=== PATIENT | female | born 1995 | race Caucasian/White ===

== ENCOUNTER → 2017-06-21 | Outpatient (CLI) | payer BC | END | disposition home or self-care (01) | LOC: GMAB 12:26 | PROVIDERS: ATTEND Family Medicine | DX: M35.9 Systemic involvement of connective tissue, unspecified (principal) ==

== ENCOUNTER → 2017-08-26 | Outpatient (CLI) | payer OTHER ==
--- NOTE | 2017-08-26 11:01 | US ---
EXAM DESCRIPTION: Gall Bladder CLINICAL HISTORY: EPIGASTRIC PAIN COMPARISON: None available. FINDINGS: Aorta: Nonaneurysmal. IVC: Visualized portions normal. Ascites: None. Pancreas: Partially obscured by overlying bowel gas but visualized portions normal. Liver: The liver is not enlarged. There is a 2.4 cm ovoid hyperechoic lesion in the right hepatic lobe, nonspecific. No definite internal blood flow. No additional liver mass. No intrahepatic biliary duct dilation. Physiologic flow is noted in the main portal vein. Gallbladder/Common Duct: No stones, wall thickening, pericholecystic fluid or common duct dilation. Right Kidney: No stones, significant hydronephrosis, atrophy or mass. IMPRESSION: 2.4 cm ovoid hyperechoic lesion in the right hepatic lobe, nonspecific. This probably represents a hemangioma or other benign liver lesion and may correlate with a slightly smaller hypodense lesion near the same location seen on a previous CT performed in Oct, 2015. Hepatic protocol CT should be considered for further evaluation and confirmation of benign etiology. No cholelithiasis or additional abnormality to explain patient symptoms. Electronically signed by: Keaton Knapp MD 08/26/2017 10:59 AM CDT
== END ==
LOC: US 10:15
PROVIDERS: ATTEND Family Medicine
DX: R10.13 Epigastric pain (principal)

== ENCOUNTER → 2017-11-14 | Outpatient (CLI) | payer OTHER ==
--- NOTE | 2017-11-14 13:10 | US ---
EXAM DESCRIPTION: Venous,Lower Extremity RT: ULTRASOUND. CLINICAL HISTORY: PN IN RIGHT LEG COMPARISON: None Available. TECHNIQUE: Two -dimensional and doppler sonographic evaluation of the deep venous system of the right lower extremity. FINDINGS: Doppler evaluation shows normal color flow and normal phasicity and augmentation of the right common femoral vein, femoral vein, popliteal vein, greater saphenous vein, peroneal, and posterior tibial vein. The right lower extremity deep veins showed normal occlusion with transducer pressure. Two-dimensional survey showed no echogenic thrombus within these veins. IMPRESSION: 1. Duplex ultrasound evaluation of the right lower extremity deep venous system showing no evidence of thrombosis or embolism. Electronically signed by: Galo Moore MD 11/14/2017 1:09 PM CDT
== END ==
LOC: US 12:22
PROVIDERS: ATTEND Family Medicine
DX: M79.604 Pain in right leg (principal); N30.00 Acute cystitis without hematuria

== ENCOUNTER 2017-11-15 11:07 | Emergency (ER) | payer OTHER ==
[2017-11-15 11:31] VITALS: TEMP 99.2
[2017-11-15] MEDS ORDERED: CYCLOBENZAPRINE HCL 5 MG TAB PO ONE (11:37)
[2017-11-15] MEDS ORDERED: predniSONE 20 MG TAB PO ONE (11:37)
--- NOTE | 2017-11-15 11:49 | ED.PDOC ---
History of Present Illness - General Chief Complaint: General Stated Complaint: right hip pain Time Seen by Provider: 11/15/17 11:27 Source: patient Exam Limitations: no limitations - History of Present Illness Initial Comments: the patient is a 22-year-old female presenting to the emergency room secondary to right low back pain present for about 2 days. She went to her primary care doctor yesterday who did x-rays of the area and found no acute pathology. Additionally she had a right lower extremity Doppler performed which showed no evidence of any DVT. The patient is having pain at the right side of L5 by the junction of L5 and S1 in the sacroiliac joint. She is having intermittent symptoms of sciatica. She has obvious palpable paraspinal muscle spasm. No known history of trauma but she does have apparently some lupus and has been somewhat incomplete noncompliant with her Plaquenil. No fevers. No evidence of any infection. No evidence of any rash over the skin in the area. The area is uncomfortable with palpation as well. No pain over the piriformis muscle. She appears to be neurovascularly intact. Timing/Duration: unsure Severity: moderate Improving Factors: nothing Worsening Factors: nothing Associated Symptoms: denies symptoms Allergies/Adverse Reactions: Allergies NO KNOWN ALLERGY Allergy (Verified 04/29/16 00:35) Home Medications: Ambulatory Orders Aspirin [Aspirin Adult Low Dose] 81 mg PO DAILY 10/10/15 Pantoprazole Tablet [Protonix] 40 mg PO DAILY 10/10/15 Plaquenil 200 mg PO DAILY 10/10/15 busPIRone HCL [Buspar] 5 mg PO BID 10/10/15 Cefuroxime Axetil [Ceftin] 250 mg PO BID #7 tab 10/12/15 HYDROcodone 5MG/APAP 325MG [[place] 5/325] 1 - 2 ea PO .Q4H PRN #40 tab 10/12/15 Cyclobenzaprine HCl [Flexeril] 5 mg PO TID PRN #30 tab 11/15/17 predniSONE [Prednisone] 40 mg PO DAILY #10 tab 11/15/17 Review of Systems - Review of Systems Constitutional: States: no symptoms reported EENTM: States: no symptoms reported Respiratory: States: no symptoms reported Cardiology: States: no symptoms reported Gastrointestinal/Abdominal: States: no symptoms reported Genitourinary: States: no symptoms reported Musculoskeletal: States: see HPI Skin: States: no symptoms reported Neurological: States: no symptoms reported Endocrine: States: no symptoms reported All other Systems: No Change from Baseline Past Medical History (General) - Patient Medical History Hx Seizures: No Hx Cardiac Disorders: No Hx Congestive Heart Failure: No Hx Hypertension: No Hx Diabetes: No Hx MRSA: No Surgical History: appendectomy - Vaccination History Hx Tetanus, Diphtheria Vaccination: No Hx Influenza Vaccination: No Hx Pneumococcal Vaccination: No - Social History Hx Tobacco Use: No Hx Alcohol Use: Yes Hx Substance Use: No Hx Substance Use Treatment: No Hx Depression: No - Female History Patient : No Family Medical History - Family History Mother Family History: No Known Physical Exam - Physical Exam General Appearance: Alert, Comfortable, No apparent distress Eye Exam: bilateral normal Ears, Nose, Throat: hearing grossly normal, normal ENT inspection, normal pharynx Neck: full range of motion, supple Respiratory: no respiratory distress, no accessory muscle use Cardiovascular/Chest: normal peripheral pulses, no edema Peripheral Pulses: radial,right: 2+, radial,left: 2+, dorsalis pedis,right: 2+, dorsalis pedis,left: 2+ Rectal Exam: deferred Back Exam: other - see history of present illness. 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 x-rays at her primary care doctor's office along with a right lower extremity Doppler yesterday were apparently negative for any acute pathology. Based on physical exam this appears to be inflammation at the junction of the L5-S1. This is likely related to her lupus. She does have some adjacent paraspinal muscle spasm. No evidence of any skin change to indicate shingles. If she does start to develop a rash then she does need to be reevaluated for that possibility. No evidence of infection at this time. The patient does need to take her Plaquenil as she has been previously instructed. I'm going to add prednisone 40 mg daily for the next 4 days. She needs to take this in the morning. Additionally she'll be written for Flexeril 5 mg 3 times a day as needed to help reduce any muscle spasm. Topical heat may help reduce discomfort and she does need to do some stretching exercises. If she starts to develop any evidence of any infection then she does need to be reevaluated as soon as possible given the fact that she is on immunosuppressants. follow back up with primary care doctor next week. ER warnings were given. Departure - Departure Clinical Impression: Low back pain Qualifiers: Chronicity: acute Back pain laterality: right Sciatica presence: with sciatica Sciatica laterality: sciatica of right side Qualified Code(s): M54.41 - Lumbago with sciatica, right side Disposition: Discharge to Home or Self Care Condition: Fair Departure Forms: ED Discharge - Pt. Copy, Patient Portal Self Enrollment Instructions: DI for Low Back Pain Diet: regular diet Activity: increase activity as tolerated Referrals: Ang Zacarias MD [Primary Care Provider] - 1-5 Days Prescriptions: Cyclobenzaprine HCl [Flexeril] 5 mg PO TID PRN #30 tab PRN Reason: Muscle Spasms predniSONE [Prednisone] 40 mg PO DAILY #10 tab Home Medications: Ambulatory Orders Aspirin [Aspirin Adult Low Dose] 81 mg PO DAILY 10/10/15 Pantoprazole Tablet [Protonix] 40 mg PO DAILY 10/10/15 Plaquenil 200 mg PO DAILY 10/10/15 busPIRone HCL [Buspar] 5 mg PO BID 10/10/15 Cefuroxime Axetil [Ceftin] 250 mg PO BID #7 tab 10/12/15 HYDROcodone 5MG/APAP 325MG [[place] 5/325] 1 - 2 ea PO .Q4H PRN #40 tab 10/12/15 Cyclobenzaprine HCl [Flexeril] 5 mg PO TID PRN #30 tab 11/15/17 predniSONE [Prednisone] 40 mg PO DAILY #10 tab 11/15/17 Additional Instructions: the patient is a 22-year-old female with a history of lupus presenting to the emergency room secondary to a couple of days of right-sided low back pain with associated intermittent sciatica. x-rays at her primary care doctor's office along with a right lower extremity Doppler yesterday were apparently negative for any acute pathology. Based on physical exam this appears to be inflammation at the junction of the L5-S1. This is likely related to her lupus. She does have some adjacent paraspinal muscle spasm. No evidence of any skin change to indicate shingles. If she does start to develop a rash then she does need to be reevaluated for that possibility. No evidence of infection at this time. The patient does need to take her Plaquenil as she has been previously instructed. I'm going to add prednisone 40 mg daily for the next 4 days. She needs to take this in the morning. Additionally she'll be written for Flexeril 5 mg 3 times a day as needed to help reduce any muscle spasm. Topical heat may help reduce discomfort and she does need to do some stretching exercises. If she starts to develop any evidence of any infection then she does need to be reevaluated as soon as possible given the fact that she is on immunosuppressants. follow back up with primary care doctor next week. ER warnings were given.
[2017-11-15 12:04] VITALS: BP 116/78; O2SAT 99
== END 2017-11-15 12:01 | disposition home or self-care (01) ==
LOC: ER 11:07
DX: M54.41 Lumbago with sciatica, right side (principal); M62.838 Other muscle spasm; Z79.899 Other long term (current) drug therapy; Z79.82 Long term (current) use of aspirin

== ENCOUNTER → 2018-07-16 | Outpatient (CLI) | payer OTHER | LOC: GMAL 11:34 | PROVIDERS: ATTEND Family Medicine | DX: E53.9 Vitamin B deficiency, unspecified (principal); E55.9 Vitamin D deficiency, unspecified ==

== ENCOUNTER 2018-10-01 17:59 | Emergency (ER) | payer OTHER ==
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
[2018-10-01] MEDS ORDERED: KETOROLAC TROMETHAMINE INJ 30 MG/ML VIAL IM ONE (19:51)
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
[2018-10-01 22:09] VITALS: O2SAT 98
[2018-10-01 22:12] VITALS: BP 110/70; TEMP 98.1
== END 2018-10-01 20:30 | disposition home or self-care (01) ==
LOC: ER 17:59
DX: S80.11XA Contusion of right lower leg, initial encounter (principal); S80.12XA Contusion of left lower leg, initial encounter; S80.812A Abrasion, left lower leg, initial encounter; V86.59XA Driver of other special all-terrain or other off-road motor vehicle injured in nontraffic accident, initial encounter; Y92.9 Unspecified place or not applicable; Z79.82 Long term (current) use of aspirin; Z79.899 Other long term (current) drug therapy
CPT/HCPCS: 73562; 73590; J1885

== ENCOUNTER 2018-10-30 19:36 | Emergency (ER) | payer OTHER ==
[2018-10-30] MEDS ORDERED: NITROGLYCERIN 0.4 MG 25 EA TAB SL ONE (19:53)
[2018-10-30] MEDS ORDERED: ASPIRIN TABLET 325 MG TAB ONE (19:54)
[2018-10-30] MEDS: ASPIRIN TABLET 325 MG TAB PO ONE (20:00)
[2018-10-30] MEDS: NITROGLYCERIN 0.4 MG 25 EA TAB SL ONE (20:00)
[2018-10-30 20:11] VITALS: O2SAT 99
--- NOTE | 2018-10-30 20:12 | ED.PDOC ---
History of Present Illness - General Chief Complaint: Chest Pain/[place] Stated Complaint: report chest pain Time Seen by Provider: 10/30/18 20:08 Source: patient Exam Limitations: no limitations - History of Present Illness Initial Comments: patient comes in with 1 day history of severe burning substernal epigastric pain that radiates to her back. Patient states it's worse when she lays flat and she often does have reflux and heartburn. She's noted over the past several months that her belly always feels distended and very painful. Patient has no shortness of breath and has never had a cardiac history in the past. Patient does have a history of rheumatoid arthritis and lupus. She takes possible nail, aspirin, NSAIDs, Protonix, and Xyzal for her seasonal allergies. Patient states that she was given Xanax by her family and that at least let her get some sleep but essentially she woke up the pain was much worse. Patient currently takes oral contraceptives. Her only past surgical history is appendectomy and tympanostomy tubes. Patient has no known drug allergies. Patient states she's had a stomach bug for the past 3-4 days with nausea, vomiting, and now for the past 2 days continuous diarrhea. No sick contacts and no fever or chills. No cholesterol by mouth intake or recent travel. Timing/Duration: 24 hours Severity: severe Improving Factors: other - sitting up Worsening Factors: other - lying down Associated Symptoms: nausea/vomiting Allergies/Adverse Reactions: Allergies NO KNOWN ALLERGY Allergy (Verified 10/01/18 18:43) Home Medications: Ambulatory Orders Aspirin [Aspirin Adult Low Dose] 81 mg PO DAILY 10/10/15 Pantoprazole Tablet [Protonix] 40 mg PO DAILY 10/10/15 busPIRone HCL [Buspar] 5 mg PO BID 10/10/15 Cyanocobalamin [Vitamin B12] 1,000 mcg PO DAILY 10/01/18 Hydroxychloroquine Sulfate [Plaquenil] 200 mg PO DAILY 10/01/18 Levocetirizine Dihydrochloride [Xyzal Allergy 24Hr] 5 mg PO DAILY 10/01/18 Norethindrone Acetate 5 mg PO DAILY 10/01/18 Ondansetron Odt (ER Disp) [Zofran ODT (ER DISP)] 8 mg PO ONCE #4 tab 10/30/18 Sucralfate Suspension [Carafate Suspension] 1 gm PO ACHS 10 Days #1 bottle 10/30/18 Review of Systems - Review of Systems Constitutional: States: malaise, weakness EENTM: States: nose congestion. Denies: ear pain, throat pain, throat swelling Respiratory: States: cough. Denies: short of breath, wheezing Cardiology: States: chest pain. Denies: edema, palpitations, syncope Gastrointestinal/Abdominal: States: abdominal pain, diarrhea, nausea, vomiting Genitourinary: States: no symptoms reported Musculoskeletal: States: no symptoms reported Skin: States: no symptoms reported Neurological: States: no symptoms reported Past Medical History (General) - Patient Medical History Hx Seizures: No Hx Stroke: No Hx of COPD: No Hx Cardiac Disorders: No Hx Congestive Heart Failure: No Hx Hypertension: No Hx Diabetes: No Hx MRSA: No Hx Other PMH: Yes - SLE and RA - Vaccination History Hx Tetanus, Diphtheria Vaccination: Yes Hx Influenza Vaccination: No Hx Pneumococcal Vaccination: No - Social History Hx Tobacco Use: No Hx Alcohol Use: Yes Hx Substance Use: No Hx Substance Use Treatment: No Hx Depression: No - Female History Patient : No Family Medical History - Family History Mother Family History: No Known Hx Family;Other: Cerebal palsy Physical Exam - Physical Exam General Appearance: Alert, Obvious distress Eye Exam: bilateral normal Ears, Nose, Throat: hearing grossly normal, normal ENT inspection, normal pharynx Neck: non-tender, full range of motion, supple, normal inspection Respiratory: chest non-tender, lungs clear, normal breath sounds, no respiratory distress Cardiovascular/Chest: normal peripheral pulses, regular rate, rhythm, no edema, no gallop, no murmur Peripheral Pulses: radial,right: 2+, radial,left: 2+ Gastrointestinal/Abdominal: soft, abnormal bowel sounds - hypoactive bowel sounds , distended, tenderness - TTP to epigastric area and LUQ with no rebound and no guarding Back Exam: no CVA tenderness Extremity: non-tender Neurologic: no motor/sensory deficits, alert, oriented x 3 Progress - Progress Progress: 10/30/18 21:38 patient feeling better after GI cocktail and IVF. No emesis now and able to lie down and rest. Discussed current diagnosis is gastritis and suspect gastric ulcer. Will need follow up with PCP to get GI consult for EGD. Stop RA meds for now. Return to ER for worsening of pain, intractable emesis. - Results/Orders Results/Orders: 10/30/18 19:59 IV Care:Saline Lock per Protoc QSHIFT Telemetry .ONCE Sodium Chloride 0.9% (Flush) [Saline Flush Syringe] 10 ml IV PRN PRN EKG Stat Pulse Ox Stat Pulse Oximetry Assessment DAILY 10/30/18 20:43 Urine Culture Stat Laboratory Results WBC 5.2 K/mm3 (4.8-10.8) 10/30/18 20:20 RBC 4.79 M/mm3 (4.20-5.40) 10/30/18 20:20 Hgb 14.5 gm/dL (12.0-16.0) 10/30/18 20:20 Hct 42.8 % (36.0-47.0) 10/30/18 20:20 MCV 89.4 fl (81.0-99.0) 10/30/18 20:20 MCH 30.3 pg (27.0-31.0) 10/30/18 20:20 MCHC 33.9 g/dL (33.0-37.0) 10/30/18 20:20 RDW 12.5 % (11.5-14.5) 10/30/18 20:20 Plt Count 249 K/mm3 (130-400) 10/30/18 20:20 MPV 8.6 fl (7.40-10.4) 10/30/18 20:20 Absolute Neuts (auto) 3.50 K/uL (1.8-6.8) 10/30/18 20:20 Absolute Lymphs (auto) 1.20 K/uL (1.0-3.4) 10/30/18 20:20 Absolute Monos (auto) 0.40 K/uL (0.2-0.8) 10/30/18 20:20 Absolute Eos (auto) 0.00 K/uL (0.0-0.4) 10/30/18 20:20 Absolute Basos (auto) 0.00 K/uL (0.0-0.1) 10/30/18 20:20 Neutrophils % 67.0 % (42.0-78.0) 10/30/18 20:20 Lymphocytes % 23.6 % (20.0-50.0) 10/30/18 20:20 Monocytes % 8.1 % (2.0-9.0) 10/30/18 20:20 Eosinophils % 0.8 % (1.0-5.0) L 10/30/18 20:20 Basophils % 0.5 % (0.0-2.0) 10/30/18 20:20 D-Dimer, Quantitative 0.19 mg/L FEU (0-0.49) 10/30/18 20:20 Sodium 139 mmol/L (135-145) 10/30/18 20:20 Potassium 4.1 mmol/L (3.6-5.0) 10/30/18 20:20 Chloride 106 mmol/L (101-111) 10/30/18 20:20 Carbon Dioxide 25 mmol/L (21-31) 10/30/18 20:20 Anion Gap 12.1 (12-18) 10/30/18 20:20 BUN 12 mg/dL (7-18) 10/30/18 20:20 Creatinine 0.83 mg/dL (0.6-1.3) 10/30/18 20:20 BUN/Creatinine Ratio 14.5 (10-20) 10/30/18 20:20 Random Glucose 96 mg/dL (70-105) 10/30/18 20:20 Serum Osmolality 277.2 mOsm/L (275-295) 10/30/18 20:20 Calcium 8.5 mg/dL (8.4-10.2) 10/30/18 20:20 Total Bilirubin 0.8 mg/dL (0.2-1.0) 10/30/18 20:20 AST 39 IU/L (10-42) 10/30/18 20:20 ALT 31 IU/L (10-60) 10/30/18 20:20 Alkaline Phosphatase 61 IU/L (42-121) 10/30/18 20:20 Creatine Kinase 59 IU/L (26-140) 10/30/18 20:20 CK-MB (CK-2) 0.5 ng/mL (0.0-4.4) 10/30/18 20:20 CK-MB (CK-2) % Not Reportable 10/30/18 20:20 Troponin I < 0.02 ng/mL (0.01-0.05) 10/30/18 20:20 Serum Total Protein 7.7 gm/dL (6.4-8.2) 10/30/18 20:20 Albumin 4.5 g/dl (3.2-5.5) 10/30/18 20:20 Globulin 3.2 gm/dL (2.3-3.5) 10/30/18 20:20 Albumin/Globulin Ratio 1.4 (1.1-1.9) 10/30/18 20:20 Amylase 58 U/L (28-100) 10/30/18 20:20 Lipase 30 U/L (22-51) 10/30/18 20:20 Serum HCG, Qual Negative (NEGATIVE) 10/30/18 20:20 Urine Color Yellow (Yellow) 10/30/18 20:43 Urine Appearance Cloudy (Clear) 10/30/18 20:43 Urine pH 6.0 (4.5-7.8) 10/30/18 20:43 Ur Specific [place] >= 1.030 (1.005-1.030) 10/30/18 20:43 Urine Protein 30 mg/dL 10/30/18 20:43 Urine Glucose (UA) Negative mg/dL (Negative) 10/30/18 20:43 Urine Ketones Negative mg/dL (NEGATIVE) 10/30/18 20:43 Urine Blood Negative (Negative) 10/30/18 20:43 Urine Nitrite Negative 10/30/18 20:43 Urine Bilirubin Negative (NEGATIVE) 10/30/18 20:43 Urine Urobilinogen 0.2 mg/dL (0.2-1.0) 10/30/18 20:43 Ur Leukocyte Esterase Small (Negative) H 10/30/18 20:43 Urine RBC 0 /hpf 10/30/18 20:43 Urine WBC 20-30 /hpf H 10/30/18 20:43 Ur Epithelial Cells 3-5 /hpf 10/30/18 20:43 Urine Bacteria 1+ 10/30/18 20:43 Urine Mucus Large 10/30/18 20:43 Urine Yeast Rare 10/30/18 20:43 Patient Name: DANIEL ROMAN Gender: Female Date of : 1995 Referring Physician: SAMANTHA SEPULVEDA Organization: [facility] Accession Number: [id number] Requested Date: October 30, 2018 20:08 Report Status: Final Requested Procedure: 1 Procedure Description: Abdoment/Pelvis w/o Contrast Modality: CT Findings Reporting MD: Barrera Loaiza MD: Not available Dictation Time: Bottle Filler: Not available 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 COMPARISON: 10/10/2015 TECHNIQUE: The CT scan was done using contiguous axial 2.5 mm noncontrast sections through the abdomen and pelvis. This exam was performed according to our departmental dose-optimization program, which includes automated exposure control, adjustment of the mA and/or kV according to patient size and/or use of iterative reconstruction technique. FINDINGS: The visualized portions of the lung bases are clear. The liver, gallbladder, adrenal glands, spleen, and pancreas have an unremarkable noncontrast CT appearance. A few tiny barely perceptible, less than 1 mm stones are noted in both kidneys. The kidneys are otherwise unremarkable. The aorta is normal in caliber. No dilated loops of small bowel are identified. The appendix is surgically absent. There is no free air, free fluid, or abscess. IMPRESSION: No evidence of an acute intra-abdominal process. Tiny nonobstructing stones in both kidneys. 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 The heart size is normal. The pulmonary vascularity is unremarkable. The lungs are clear. There is no consolidation, infiltrate, pleural effusion, or pneumothorax. IMPRESSION: Normal chest radiograph - EKG/XRAY/CT EKG: Sinus, no ST T wave changes Departure - Departure Clinical Impression: Gastritis Qualifiers: Gastritis type: other gastritis Chronicity: acute Gastritis bleeding: without bleeding Qualified Code(s): K29.00 - Acute gastritis without bleeding Disposition: Discharge to Home or Self Care Condition: Fair Departure Forms: ED Discharge - Pt. Copy, Patient Portal Self Enrollment Instructions: DI for Chest Pain Referrals: Avelino Zheng III, MD [Primary Care Provider] - 1-2 Weeks Prescriptions: Ondansetron Odt (ER Disp) [Zofran ODT (ER DISP)] 8 mg PO ONCE #4 tab Sucralfate Suspension [Carafate Suspension] 1 gm PO ACHS 10 Days #1 bottle Home Medications: Ambulatory Orders Aspirin [Aspirin Adult Low Dose] 81 mg PO DAILY 10/10/15 Pantoprazole Tablet [Protonix] 40 mg PO DAILY 10/10/15 busPIRone HCL [Buspar] 5 mg PO BID 10/10/15 Cyanocobalamin [Vitamin B12] 1,000 mcg PO DAILY 10/01/18 Hydroxychloroquine Sulfate [Plaquenil] 200 mg PO DAILY 10/01/18 Levocetirizine Dihydrochloride [Xyzal Allergy 24Hr] 5 mg PO DAILY 10/01/18 Norethindrone Acetate 5 mg PO DAILY 10/01/18 Ondansetron Odt (ER Disp) [Zofran ODT (ER DISP)] 8 mg PO ONCE #4 tab 10/30/18 Sucralfate Suspension [Carafate Suspension] 1 gm PO ACHS 10 Days #1 bottle 10/30/18 Additional Instructions: suspect gastric ulcer. Will need follow up with PCP to get GI consult for EGD. Stop RA meds for now. Return to ER for worsening of pain, intractable emesis.
[2018-10-30] MEDS ORDERED: LIDOCAINE HCL 2% (MOUTH-THROAT) 15 ML UD ONE ×2 (20:29→21:43)
[2018-10-30] MEDS ORDERED: ALUM & MAG HYDROX-SIMETHICONE 30 ML UD ONE ×2 (20:29→21:43)
[2018-10-30] MEDS: ALUM & MAG HYDROX-SIMETHICONE 30 ML, LIDOCAINE VISCOUS 2% 15 ML PO ONE ×4 (20:33→21:45)
[2018-10-30] MEDS: SODIUM CHLORIDE 0.9% 1000ML 1,000 ML IVS ONE (20:34)
[2018-10-30] MEDS: ONDANSETRON INJ 4 MG/2 ML VIAL IV ONE (20:37)
[2018-10-30] MEDS: SODIUM CHLORIDE 0.9% (FLUSH) 10 ML SYG IV PRN (20:38)
--- NOTE | 2018-10-30 21:11 | RAD ---
EXAM: Chest,1 View CLINICAL INDICATION: Chest pain COMPARISON: 07/22/2008 FINDINGS: A single view of the chest was obtained. The heart size is normal. The pulmonary vascularity is unremarkable. The lungs are clear. There is no consolidation, infiltrate, pleural effusion, or pneumothorax. IMPRESSION: Normal chest radiograph. Electronically signed by: Barrera Loaiza MD 10/30/2018 9:09 PM CDT
--- NOTE | 2018-10-30 21:14 | CT ---
EXAM: Abdoment/Pelvis w/o Contrast CLINICAL INDICATION: Abdominal pain. COMPARISON: 10/10/2015 TECHNIQUE: The CT scan was done using contiguous axial 2.5 mm noncontrast sections through the abdomen and pelvis. This exam was performed according to our departmental dose-optimization program, which includes automated exposure control, adjustment of the mA and/or kV according to patient size and/or use of iterative reconstruction technique. FINDINGS: The visualized portions of the lung bases are clear. The liver, gallbladder, adrenal glands, spleen, and pancreas have an unremarkable noncontrast CT appearance. A few tiny barely perceptible, less than 1 mm stones are noted in both kidneys. The kidneys are otherwise unremarkable. The aorta is normal in caliber. No dilated loops of small bowel are identified. The appendix is surgically absent. There is no free air, free fluid, or abscess. IMPRESSION: No evidence of an acute intra-abdominal process. Tiny nonobstructing stones in both kidneys. Electronically signed by: Barrera Loaiza MD 10/30/2018 9:12 PM CDT
[2018-10-30] MEDS: ONDANSETRON ODT (ER DISP) 8 MG TAB PO ONE (21:58)
[2018-10-30 22:09] VITALS: BP 113/64; TEMP 97.9
== END 2018-10-30 22:09 | disposition home or self-care (01) ==
LOC: ER 19:36
DX: K29.00 Acute gastritis without bleeding (principal); R07.9 Chest pain, unspecified; M32.19 Other organ or system involvement in systemic lupus erythematosus; M06.9 Rheumatoid arthritis, unspecified; Z79.82 Long term (current) use of aspirin; Z79.899 Other long term (current) drug therapy; Z90.49 Acquired absence of other specified parts of digestive tract
CPT/HCPCS: 36415; 71045; 74176; 80053; 81001; 82150; 82550; 82553; 83690; 84484; 84703; 85025; 85379; 87086; 93005; J2405; J7030

== ENCOUNTER → 2019-03-26 | Outpatient (CLI) | payer BC, OTHER ==
--- NOTE | 2019-03-26 14:35 | MRI ---
Study: MRI of the Left Knee. Indication: PAIN IN LEFT KNEE Technique: Multiplanar, multi sequence MRI of the left knee was obtained without intravenous contrast. Comparison: None. Findings: ACL, PCL, and MCL intact. IT band thickened distally with increased internal PD signal which can be seen with IT band friction. Remaining lateral collateral ligament complex structures intact. Medial meniscus and lateral meniscus intact. No high-grade chondral defect throughout the knee. Tendinosis quadriceps tendon insertion. Patellar tendon intact. Mild prepatellar tendon bursitis. Patella normally located. No high-grade chondral defect patellofemoral compartment. Tiny effusion. No acute fracture. Impression: Intact menisci. Subtle findings which can be seen with IT band friction. Low-grade tendinosis quadriceps tendon insertion. Mild prepatellar tendon bursitis. Electronically signed by: Owen Talavera MD 03/26/2019 2:33 PM CDT
== END ==
LOC: MRI 09:10
PROVIDERS: ATTEND Family Medicine
DX: M76.892 Other specified enthesopathies of left lower limb, excluding foot (principal); M70.42 Prepatellar bursitis, left knee

== ENCOUNTER → 2019-06-15 | Outpatient (CLI) | payer BC | LOC: GMAL 18:10 | PROVIDERS: ATTEND Family Medicine | DX: M32.9 Systemic lupus erythematosus, unspecified (principal) ==

== ENCOUNTER → 2019-11-03 | Outpatient (CLI) | payer BC | LOC: LAB.O 12:22 | PROVIDERS: ATTEND Family Medicine | DX: R03.0 Elevated blood-pressure reading, without diagnosis of hypertension (principal); N39.0 Urinary tract infection, site not specified ==

== ENCOUNTER → 2019-11-16 | Outpatient (CLI) | payer BC ==
--- NOTE | 2019-11-17 08:40 | US ---
EXAM DESCRIPTION: Renal: Ultrasound. CLINICAL HISTORY: 24 years Female ELEVATED BLOOD PRESSURE READING COMPARISON: None TECHNIQUE: Transcutaneous scanning: Two-dimensional and Doppler modes. FINDINGS: Right kidney measures 10.6 x 4.7 x 5.3 cm; renal volume 138.9 mL. Mid-renal cortical thickness 10 mm. . Increased cortical echogenicity equal to the liver No hydronephrosis No echogenic stones. 16 x 15 mm cyst in the inferior pole. Minimally lobulated contour of the kidney with no perinephric fluid. Normal vascularity. Proximal ureter not seen.. Left kidney measures 10.3 x 5.2 x 5.2 cm; renal volume 144.1 mL. Mid 144-renal cortical thickness 11 mm.. Increased cortical echogenicity but less than the spleen. No hydronephrosis. No echogenic stones. Minimally lobulated contour of the kidney with no perinephric fluid. Normal vascularity.. Proximal ureter not seen. Urinary bladder was visualized. Bladder volume 65.4 mL. Ureteral jet in the bladder not seen by color Doppler. Patient unable to void. Abdominal aorta: Normal caliber from the proximal segment to the distal bifurcation. IMPRESSION: 1. Bilateral kidneys with cortical thinning and increased cortical echogenicity. Right kidney more echogenic than the liver which could indicate more progressive disease compared to the left. Volumes are similar. No echogenic stones or hydronephrosis bilaterally. Ureters are not seen. 2. Small bladder volume and patient did not void. Normal caliber of the abdominal aorta. Electronically signed by: Galo Moore MD 11/17/2019 8:39 AM CDT
== END ==
LOC: US 11:00
PROVIDERS: ATTEND Family Medicine
DX: R03.0 Elevated blood-pressure reading, without diagnosis of hypertension (principal); N28.9 Disorder of kidney and ureter, unspecified

== ENCOUNTER → 2019-12-14 | Outpatient (CLI) | payer BC ==
--- NOTE | 2019-12-14 12:29 | US ---
EXAM DESCRIPTION: Renal Arteries: Ultrasound. CLINICAL HISTORY: ELEVATED BLOOD PRESSURE COMPARISON: Two-dimensional ultrasound evaluation of the bilateral kidneys on November 15. TECHNIQUE: Transcutaneous scanning: Grayscale mode. Doppler peak systolic and end-diastolic velocities/measurements of the abdominal aorta, renal arteries, intra renal arteries, and renal veins. FINDINGS: PSV (cm/sec): Aorta: 121 Right renal artery: 97 Left renal artery: 88 EDV (cm/sec): Right renal artery: 37.1 Left renal artery: 31.6 Renal veins: Visualized. IVC: Visualized. Intrarenal RI's: Proximal segmental Right: 0.52 Left: 0.65. Mid segmental Right: 0.58 Left: 0.51. Distal segmental Right: 0.59 Left: 0.58. Renal Aortic Ratio: Right RAR = RRA PSV/Aortic PSV = 97 /121= 0.8. Left RAR = LRA PSV/Aortic PSV = 88/121 = 0.7. End Diastolic Ratio: Right EDR = RRA EDV/RRA PSV = 37/97 = 0.38. Left EDR = LRA EDV/LRA PSV = 31.6/88= 0.36. Other: None.. IMPRESSION: 1. Bilateral renal aortic ratios are within normal range with no evidence of significant renal artery stenosis ( greater than 50%). 2. Bilateral end diastolic ratios of the renal arteries and resistive measurements of the segmental arteries showing no evidence of significant renovascular parenchymal disease. Electronically signed by: Galo Moore MD 12/14/2019 12:27 PM CDT
== END ==
LOC: US 12-11 10:04
PROVIDERS: ATTEND Family Medicine
DX: R10.84 Generalized abdominal pain (principal); R03.0 Elevated blood-pressure reading, without diagnosis of hypertension

== ENCOUNTER → 2020-01-04 | Outpatient (CLI) | payer BC | LOC: GMAL 16:26 | PROVIDERS: ATTEND Family Medicine | DX: I10 Essential (primary) hypertension (principal) ==

== ENCOUNTER → 2020-01-07 | Outpatient (CLI) | payer BC | LOC: GMAE 10:37 | PROVIDERS: ATTEND Family Medicine | DX: R39.15 Urgency of urination (principal) ==

== ENCOUNTER 2020-04-09 02:10 | Emergency (ER) | payer BC, OTHER ==
[2020-04-09] MEDS ORDERED: SODIUM CHLORIDE 0.9% 1000ML 1,000 ML IVS ONE (02:41)
[2020-04-09] MEDS ORDERED: KETOROLAC TROMETHAMINE INJ 30 MG/ML VIAL IV ONE (02:41)
[2020-04-09] MEDS ORDERED: ALUM & MAG HYDROX-SIMETHICONE 30 ML UD ONE (02:56)
[2020-04-09] MEDS ORDERED: LIDOCAINE HCL 2% (MOUTH-THROAT) 15 ML UD ONE (02:56)
[2020-04-09] MEDS ORDERED: ONDANSETRON INJ 4 MG/2 ML VIAL ONE (02:58)
[2020-04-09] MEDS ORDERED: ONDANSETRON INJ 4 MG/2 ML VIAL IV ONE (02:58)
[2020-04-09] MEDS ORDERED: MORPHINE SULFATE INJ 10 MG/ML VIAL IV ONE (03:13)
[2020-04-09] MEDS ORDERED: MORPHINE SULFATE INJ 10 MG/ML VIAL ONE (03:14)
--- NOTE | 2020-04-09 03:53 | CT ---
EXAM DESCRIPTION: Abdomen/Pelvis w/Contrast CLINICAL HISTORY: 25 years Female, lupus, fever, diarrhea, dysuria 5 days COMPARISON: Noncontrast CT scan the abdomen and pelvis dated 10/30/2018 TECHNIQUE: 5 mm axial images through the abdomen and pelvis were performed after the administration of intravenous contrast. Coronal and sagittal reconstructions were obtained. This exam was performed according to our departmental dose-optimization program which includes use of Automated Exposure Control, adjustment of the mA and/or kV according to patient size and/or use of iterative reconstruction technique. FINDINGS: The lung bases are clear. No pericardial or pleural effusion. A 4-5 mm area of low attenuation within RIGHT lobe of the liver on axial image 13 is too small for definitive characterization. Addition, there is a 1.6 x 1.7 cm. Hypoattenuation more centrally in the RIGHT lobe adjacent to the caudate lobe that extends over 2 cm in the craniocaudad dimension. Images were obtained during the portal venous phase and there is a question of some early filling of this lesion. Postcontrast images of the spleen, kidneys (tiny calculi seen on the prior noncontrast study are not well visualized on this postcontrast exam), adrenal glands, gallbladder and pancreas are unremarkable. In particular, both kidneys are symmetrically enhancing without adjacent fat stranding or hydronephrosis. No ascites or small bowel obstruction. There has been a previous appendectomy. Stool fills the proximal through midportion of the colon. No bowel wall thickening or pericolonic fat stranding. There is some fecalization of small bowel contents without obstruction. No adnexal mass or bladder calculus. No free fluid pelvis. No bone infarct is detected. IMPRESSION: No finding to explain this patient's diarrhea or dysuria. There is no CT evidence of pyelonephritis or cystitis and no fluid is seen in the colon. In fact, much of the colon is filled with stool and there is some fecalization of contents within the small bowel suggesting delayed bowel motility. 2 x 1.6 x 1.7 cm lesion in the central RIGHT lobe of the liver favored to represent a hemangioma although findings are not diagnostic on this single phase postcontrast study. A 4-5 mm area of hypoattenuation within the RIGHT lobe of the liver is too small for definitive characterization but of doubtful clinical significance. Electronically signed by: Martha Rodrigues MD 04/09/2020 3:51 AM [employer]ILIT[employer] DIRECTOR
[2020-04-09] MEDS ORDERED: MAGNESIUM HYDROXIDE 30 ML UD PO ONE (04:00)
[2020-04-09] MEDS ORDERED: FLUCONAZOLE 100 MG TAB PO ONE (04:00)
[2020-04-09] MEDS ORDERED: cefTRIAXone SODIUM 1 GM in SODIUM CHL 0.9% 50ML MIN-BAG+ 50 ML IVPB ONE (04:00)
--- NOTE | 2020-04-09 04:09 | ED.PDOC ---
History of Present Illness - General Chief Complaint: Problem Stated Complaint: flank pain Time Seen by Provider: 04/09/20 02:31 Source: patient Exam Limitations: no limitations - History of Present Illness Initial Comments: The patient is a 25-year-old female presented emergency room secondary to about 5 days of symptoms of abdominal pain and flank pain, a little more on the right than the left along with 4-5 episodes of diarrhea per day and some dysuria and mild frequency. She is concerned about a kidney stone possibly. No significant vaginal discharge. She does not believe she is . She does take immunosuppressive for lupus. Has had some diaphoresis but no defined fever. No rash. No history of diverticulitis or colitis. 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 No syncope or near syncope. No chest pain. 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 Timing/Duration: other - 5 days Severity: moderate Improving Factors: nothing Worsening Factors: nothing Associated Symptoms: loss of appetite, malaise Allergies/Adverse Reactions: Allergies NO KNOWN ALLERGY Allergy (Verified 10/01/18 18:43) Home Medications: Ambulatory Orders Pantoprazole Tablet [Protonix] 40 mg PO DAILY 10/10/15 Hydroxychloroquine Sulfate [Plaquenil] 400 mg PO DAILY 10/01/18 Levocetirizine Dihydrochloride [Xyzal Allergy 24Hr] 5 mg PO DAILY 10/01/18 Norethindrone Acetate 5 mg PO DAILY 10/01/18 Acetaminophen [Tylenol] 500 mg PO PRN 04/09/20 Amlodipine Besylate 10 mg PO DAILY 04/09/20 Spkraiv-Rgqalnttmplya-Hetmhrsb [Excedrin Extra Strength] 1 tab PO PRN 04/09/20 Chlorpheniramine Maleate 4 mg PO PRN 04/09/20 Hydroxychloroquine Sulfate [Plaquenil] 200 mg PO .QSATQSUN 04/09/20 Ibuprofen [Motrin] 200 mg PO PRN 04/09/20 Phenazopyridine HCl [Hm Urinary Pain Relief] 99.5 mg PO PRN 04/09/20 Sulfamethoxazole-Trimethoprim [Bactrim Ds 800-160 mg] 1 tab PO BID 04/09/20 Review of Systems - Review of Systems Constitutional: States: malaise EENTM: States: no symptoms reported Respiratory: States: no symptoms reported Cardiology: States: no symptoms reported Gastrointestinal/Abdominal: States: see HPI Genitourinary: States: see HPI Musculoskeletal: States: back pain Skin: States: no symptoms reported Neurological: States: no symptoms reported Endocrine: States: no symptoms reported All other Systems: No Change from Baseline Past Medical History (General) - Patient Medical History Hx Seizures: No Hx Stroke: No Hx of COPD: No Hx Cardiac Disorders: No Hx Congestive Heart Failure: No Hx Hypertension: No Hx Diabetes: No Hx MRSA: No - Vaccination History Hx Tetanus, Diphtheria Vaccination: Yes Hx Influenza Vaccination: No Hx Pneumococcal Vaccination: No Immunizations Up to Date: No - Social History Hx Tobacco Use: No Hx Alcohol Use: Yes Hx Substance Use: No Hx Substance Use Treatment: No Hx Depression: No - Female History Patient : No Family Medical History - Family History Mother Family History: No Known Hx Family;Other: Cerebal palsy Physical Exam - Physical Exam General Appearance: Alert, Other - Uncomfortable Eye Exam: bilateral normal Ears, Nose, Throat: hearing grossly normal, normal ENT inspection Neck: full range of motion, supple Respiratory: lungs clear, normal breath sounds, no respiratory distress, no accessory muscle use Cardiovascular/Chest: normal peripheral pulses, regular rate, rhythm, no edema Peripheral Pulses: radial,right: 2+, radial,left: 2+ Gastrointestinal/Abdominal: soft, other - Diffuse discomfort to palpation but a little worse in the right side of the abdomen. 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 The patient does appear to have a urinary tract infection and is receiving a dose of Rocephin here. Due to questionable allergy to ciprofloxacin she will be placed on Macrobid for the next 5 days. Urine will be cultured. She needs to keep her self well-hydrated. She did have a small yeast in the urine and so did receive a dose of Diflucan here today as well. Most of the symptoms the patient is experiencing is most likely however due to constipation is seen on the CT scan. She is being given a dose of milk of magnesia here and will be written for GoLYTELY to take tomorrow. She continues MiraLAX 3-5 times a week or she can take Metamucil or FiberCon daily to help reduce constipation in the future. She does need to continue her Protonix. As an incidental finding on the CT scan she does appear to have a 2 cm lesion to the liver that is most consistent with a hemangioma. I would recommend that she see her primary care doctor in a couple of months to obtain a right upper quadrant ultrasound for serial exam. ER warnings are given. crys price [id number] - Results/Orders Results/Orders: CT scan of abdomen pelvis with IV contrast shows about a 2 cm lesion on the liver that is most consistent with a hemangioma. She also has significant constipation in the proximal colon. No evidence of significant renal pathology. See reports for details. The patient tested negative for coronavirus on the rapid test here today. Laboratory Results - last 24 hr 04/09/20 04/09/20 04/09/20 02:25 02:25 02:25 WBC 6.1 RBC 4.63 Hgb 14.1 Hct 40.3 MCV 87.1 MCH 30.5 MCHC 35.0 RDW 12.3 Plt Count 194 MPV 8.5 Absolute Neuts (auto) 4.90 Absolute Lymphs (auto) 0.60 L Absolute Monos (auto) 0.40 Absolute Eos (auto) 0.10 Absolute Basos (auto) 0.00 Neutrophils % 81.7 H Lymphocytes % 10.2 L Monocytes % 6.5 Eosinophils % 1.2 Basophils % 0.4 Sodium 138 Potassium 3.8 Chloride 104 Carbon Dioxide 23 Anion Gap 14.8 BUN 19 H Creatinine 0.93 BUN/Creatinine Ratio 20.4 H Random Glucose 114 H Serum Osmolality 278.8 Calcium 8.9 Total Bilirubin 0.6 Direct Bilirubin 0.1 Indirect Bilirubin 0.5 AST 20 ALT 14 Alkaline Phosphatase 63 Serum Total Protein 7.3 Albumin 4.7 Globulin 2.6 Albumin/Globulin Ratio 1.8 Amylase 84 Lipase 44 Serum HCG, Qual Urine Color Yellow Urine Appearance Sl cloudy Urine pH 7.0 Ur Specific [place] >= 1.030 Urine Protein Trace Urine Glucose (UA) Negative Urine Ketones Negative Urine Blood Trace-intact H Urine Nitrite Positive H Urine Bilirubin Negative Urine Urobilinogen 0.2 Ur Leukocyte Esterase Small H Urine RBC 3-5 H Urine WBC 10-20 H Ur Epithelial Cells 5-10 Urine Bacteria Rare Urine Yeast 1+ budding H 04/09/20 02:25 WBC RBC Hgb Hct MCV MCH MCHC RDW Plt Count MPV Absolute Neuts (auto) Absolute Lymphs (auto) Absolute Monos (auto) Absolute Eos (auto) Absolute Basos (auto) Neutrophils % Lymphocytes % Monocytes % Eosinophils % Basophils % Sodium Potassium Chloride Carbon Dioxide Anion Gap BUN Creatinine BUN/Creatinine Ratio Random Glucose Serum Osmolality Calcium Total Bilirubin Direct Bilirubin Indirect Bilirubin AST ALT Alkaline Phosphatase Serum Total Protein Albumin Globulin Albumin/Globulin Ratio Amylase Lipase Serum HCG, Qual Negative Urine Color Urine Appearance Urine pH Ur Specific [place] Urine Protein Urine Glucose (UA) Urine Ketones Urine Blood Urine Nitrite Urine Bilirubin Urine Urobilinogen Ur Leukocyte Esterase Urine RBC Urine WBC Ur Epithelial Cells Urine Bacteria Urine Yeast Departure - Departure Clinical Impression: Constipation by delayed colonic transit, Cystitis, Yeast infection of the vagina Disposition: Discharge to Home or Self Care Condition: Fair Departure Forms: ED Discharge - Pt. Copy, Patient Portal Self Enrollment Instructions: Constipation, Adult (DC), Urinary Tract Infection, Adult (DC) Diet: regular diet - High-fiber Activity: increase activity as tolerated Referrals: Avelino Zheng III, MD [Primary Care Provider] - 1-2 Weeks Home Medications: Ambulatory Orders Pantoprazole Tablet [Protonix] 40 mg PO DAILY 10/10/15 Hydroxychloroquine Sulfate [Plaquenil] 400 mg PO DAILY 10/01/18 Levocetirizine Dihydrochloride [Xyzal Allergy 24Hr] 5 mg PO DAILY 10/01/18 Norethindrone Acetate 5 mg PO DAILY 10/01/18 Acetaminophen [Tylenol] 500 mg PO PRN 04/09/20 Amlodipine Besylate 10 mg PO DAILY 04/09/20 Auwziob-Vmkffozqmspqn-Hfnewhgi [Excedrin Extra Strength] 1 tab PO PRN 04/09/20 Chlorpheniramine Maleate 4 mg PO PRN 04/09/20 Hydroxychloroquine Sulfate [Plaquenil] 200 mg PO .QSATQSUN 04/09/20 Ibuprofen [Motrin] 200 mg PO PRN 04/09/20 Phenazopyridine HCl [Hm Urinary Pain Relief] 99.5 mg PO PRN 04/09/20 Sulfamethoxazole-Trimethoprim [Bactrim Ds 800-160 mg] 1 tab PO BID 04/09/20 Additional Instructions: The patient is a 25-year-old female presenting with 5 to 6 days of symptoms. The patient does appear to have a urinary tract infection and is receiving a dose of Rocephin here. Due to questionable allergy to ciprofloxacin she will be placed on Macrobid for the next 5 days. Urine will be cultured. She needs to keep her self well-hydrated. She did have a small yeast in the urine and so did receive a dose of Diflucan here today as well. Most of the symptoms the patient is experiencing is most likely however due to constipation as seen on the CT scan. She is being given a dose of milk of magnesia here and will be written for GoLYTELY to take tomorrow. She can use MiraLAX 3-5 times a week or she can take Metamucil or FiberCon daily to help reduce constipation in the future. She does need to continue her Protonix. As an incidental finding on the CT scan she does appear to have a 2 cm lesion to the liver that is most consistent with a hemangioma. I would recommend that she see her primary care doctor in a couple of months to obtain a right upper quadrant ultrasound for serial exam. ER warnings are given.
[2020-04-09 04:35] VITALS: BP 124/75; TEMP 97.5; O2SAT 100
== END 2020-04-09 04:34 | disposition home or self-care (01) ==
LOC: ER 02:10
DX: N30.90 Cystitis, unspecified without hematuria (principal); B37.3 Candidiasis of vulva and vagina; K59.01 Slow transit constipation; K58.9 Irritable bowel syndrome, unspecified; K76.9 Liver disease, unspecified; Z20.828 Contact with and (suspected) exposure to other viral communicable diseases
CPT/HCPCS: 74177; 80053; 80076; 81001; 82150; 83690; 84703; 85025; 87040; 87086; 87635; J0696; J1885; J2270; J2405; J7030; J7050

== ENCOUNTER 2020-06-06 07:50 | Emergency (ER) | payer OTHER ==
[2020-06-06] MEDS: ONDANSETRON INJ 4 MG/2 ML VIAL IV ONE (08:06)
[2020-06-06] MEDS: SODIUM CHLORIDE 0.9% 1000ML 1,000 ML IVS ONE (08:06)
--- NOTE | 2020-06-06 08:12 | ED.PDOC ---
History of Present Illness - General Chief Complaint: GI Problem Stated Complaint: n/v, dizziness this morning Time Seen by Provider: 06/06/20 07:59 Information Source: patient Exam Limitations: no limitations - History of Present Illness Initial Comments: PATIENT PRESENTS WITH NAUSEA, VOMITING, DIAPHORESIS, DIZZINESS ONSET THIS MORNING. DENIES ACUTE COUGH, RHINORRHEA, SORE THROAT OR OTHER SYMPTOMS. SHE SAYS SHE THINKS SHE HAS FLU. DOES NOT HAVE PERIODS, ON PROGESTERONE MINI PILL. NO PAIN AT CURRENT. Worsening Factors: nothing Review of Systems - Review of Systems Constitutional: States: no symptoms reported EENTM: States: no symptoms reported Respiratory: States: no symptoms reported Cardiology: States: no symptoms reported Genitourinary: States: no symptoms reported Past Medical History (General) - Patient Medical History Hx Seizures: No Hx Stroke: No Hx of COPD: No Hx Cardiac Disorders: No Hx Congestive Heart Failure: No Hx Hypertension: No Hx Diabetes: No Hx MRSA: No Surgical History: appendectomy - Vaccination History Hx Tetanus, Diphtheria Vaccination: Yes Hx Influenza Vaccination: No Hx Pneumococcal Vaccination: No - Social History Hx Tobacco Use: No Hx Alcohol Use: Yes Hx Substance Use: No Hx Substance Use Treatment: No Hx Depression: No - Activities of Daily Living Hospice Agency (if applicable):: None - Female History Patient : No Family Medical History - Family History Mother Family History: No Known Hx Family;Other: Cerebal palsy Physical Exam - Physical Exam General Appearance: Alert, Comfortable, Well Developed, Well Groomed, Well Hydrated, Well Nourished Eyes, Ears, Nose, Throat Exam: PERRL/EOMI, normal ENT inspection, TMs normal, pharynx normal Neck: non-tender, full range of motion, normal inspection Respiratory: chest non-tender, lungs clear, normal breath sounds, no respiratory distress Cardiovascular/Chest: normal peripheral pulses, regular rate, rhythm, no edema, no gallop, no JVD, no murmur, JVD Peripheral Pulses: No deficit Gastrointestinal/Abdominal: normal bowel sounds, non tender, no organomegaly Departure - Departure Clinical Impression: Viral gastroenteritis Time of Disposition: 09:55 Disposition: Discharge to Home or Self Care Condition: Good Departure Forms: ED Discharge - Pt. Copy, Patient Portal Self Enrollment Instructions: Viral Gastroenteritis Prescriptions: Diphenoxylate/Atropine [Lomotil Tab] 2.5 mg PO QID PRN #15 tab PRN Reason: Diarrhea Ondansetron Odt [Zofran ODT] 8 mg PO Q8H PRN #15 tab PRN Reason: nausea,vomiting Home Medications: Ambulatory Orders Pantoprazole Tablet [Protonix] 40 mg PO DAILY 10/10/15 Hydroxychloroquine Sulfate [Plaquenil] 400 mg PO DAILY 10/01/18 Levocetirizine Dihydrochloride [Xyzal Allergy 24Hr] 5 mg PO DAILY 10/01/18 Norethindrone Acetate 5 mg PO DAILY 10/01/18 Acetaminophen [Tylenol] 500 mg PO PRN 04/09/20 Amlodipine Besylate 10 mg PO DAILY 04/09/20 Qcvjcny-Jgiwemzuuwnne-Gnegcobe [Excedrin Extra Strength] 1 tab PO PRN 04/09/20 Chlorpheniramine Maleate 4 mg PO PRN 04/09/20 Hydroxychloroquine Sulfate [Plaquenil] 200 mg PO .QSATQSUN 04/09/20 Ibuprofen [Motrin] 200 mg PO PRN 04/09/20 Phenazopyridine HCl [Hm Urinary Pain Relief] 99.5 mg PO PRN 04/09/20 Sulfamethoxazole-Trimethoprim [Bactrim Ds 800-160 mg] 1 tab PO BID 04/09/20 Diphenoxylate/Atropine [Lomotil Tab] 2.5 mg PO QID PRN #15 tab 06/06/20 Ondansetron Odt [Zofran ODT] 8 mg PO Q8H PRN #15 tab 06/06/20 Additional Instructions: FOLLOW UP WITH YOUR PCP, RECOMMEND VIRTUAL VISIT THIS WEEK
[2020-06-06 10:29] VITALS: BP 114/67; TEMP 98.1; O2SAT 96
== END 2020-06-06 10:18 | disposition home or self-care (01) ==
LOC: ER 07:50
DX: A08.4 Viral intestinal infection, unspecified (principal); Z20.822 Contact with and (suspected) exposure to COVID-19; Z90.49 Acquired absence of other specified parts of digestive tract

== ENCOUNTER → 2020-08-01 | Outpatient (CLI) | payer OTHER ==
--- NOTE | 2020-08-01 12:07 | US ---
EXAM DESCRIPTION: Gall Bladder CLINICAL HISTORY: RUQ PAIN COMPARISON: Previous CT abdomen and pelvis April 09, 2020, previous renal sonogram Doppler December 14, 2019 TECHNIQUE: Right upper quadrant ultrasound FINDINGS: Pancreas: Visualized portions of the pancreas are unremarkable. Bowel gas obscures some areas. Aorta/inferior vena cava: No aortic aneurysm. Normal inferior vena cava. Liver: The liver is homogeneous in texture with normal echogenicity of the hepatic parenchyma. No focal liver lesion or intrahepatic bile duct dilatation. No liver surface irregularity. Normal appearance of the portal vein and hepatic veins. Gallbladder: Gallbladder appears normal with no intraluminal stones or wall thickening. Common bile duct: Normal caliber measuring 3.7 mm. Right kidney: Renal length is 9.7 cm. Normal cortical echogenicity. Cortical thickness is normal. No hydronephrosis is seen. No renal mass or shadowing calculus. IMPRESSION: No diagnostic abnormality is identified on sonographic examination of the right upper quadrant. Electronically signed by: Edy Yung MD 08/01/2020 12:[address] [facility]
== END ==
LOC: US 10:12
PROVIDERS: ATTEND Nurse Practitioner Family
DX: R10.11 Right upper quadrant pain (principal)